=== PATIENT | female | born 1990 | race Caucasian/White ===

== ENCOUNTER → 2020-01-18 12:25 | Outpatient (CLI) | payer OTHER | END | disposition home or self-care (01) | LOC: D.LAB 12:25 | PROVIDERS: ATTEND Internal Medicine Pulmonary Disease | DX: J45.909 Unspecified asthma, uncomplicated (principal); Z13.9 Encounter for screening, unspecified ==

== ENCOUNTER → 2020-01-20 14:24 | Outpatient (CLI) | payer OTHER ==
[2020-01-18 13:31] LABS: BASOPHILS 0.2 % (0-2); EOSINOPHILS 1.2 % (0-7); HEMATOCRIT 37.7 % (36.0-48.0); IMMATURE GRANULOCYTES 0.2 % (0-5); LYMPHOCYTES 19.9 % (15-50); MCH 27.3 pg (26.0-34.0); MCHC 31.8 g/dL (31.0-37.0); MCV 85.9 fL (80.0-100.0); MONOCYTES 5.6 % (2-11); NEUTROPHILS 72.9 % (40-80); PLATELET COUNT 374 10x3/uL (130-400); RBC 4.39 10x6/uL (4.00-5.40); RDW 14.3 % (11.5-14.5); WBC 12.2 10x3/uL (4.8-10.8)
[2020-01-21 15:10] LABS: IMMUNOGLOBULIN E 52 IU/mL (6-495)
== END | disposition home or self-care (01) ==
LOC: D.RT 14:24
PROVIDERS: ATTEND Internal Medicine Pulmonary Disease
DX: J45.909 Unspecified asthma, uncomplicated (principal); Z11.59 Encounter for screening for other viral diseases